=== PATIENT | female | born 2000 | race Two or more races ===

== ENCOUNTER 2021-05-15 18:24 | Emergency (ER) | payer OTHER ==
[~2021-05-15] VITALS: Ht 160 cm; Wt 65.8 kg
[2021-05-15] MEDS ORDERED: MACROBID 100 M100 MG PO (22:03)
== END 2021-05-15 22:12 | disposition home or self-care (01) ==
LOC: EMR PED 18:24 → ER 18:44
DX: R10.2 Pelvic and perineal pain (principal); O26.892 Other specified pregnancy related conditions, second trimester; Z3A.18 18 weeks gestation of pregnancy

== ENCOUNTER 2021-10-07 11:31 | Inpatient (IN) | payer OTHER ==
[~2021-10-07] VITALS: Ht 154.9 cm; Wt 3.6 kg
[~2021-10-07 11:31] MED LIST: MACROBID 100 M100 MG PO
== END 2021-10-21 14:36 | disposition home or self-care (01) | DRG 788 ==
LOC: LDR 10-15 14:00 → OB/GYN 10-18 23:42
PROVIDERS: ADMIT Obstetrics & Gynecology; ATTEND Obstetrics & Gynecology
PROC: 4A1HXCZ Monitoring of Products of Conception, Cardiac Rate, External Approach (ICD-10-PCS; 2021-10-18)
PROC: 10D00Z1 Extraction of Products of Conception, Low, Open Approach (ICD-10-PCS; principal; 2021-10-18 20:15)
DX: O36.63X0 Maternal care for excessive fetal growth, third trimester, not applicable or unspecified (principal); O33.5XX0 Maternal care for disproportion due to unusually large fetus, not applicable or unspecified; O99.820 Streptococcus B carrier state complicating pregnancy; Z3A.40 40 weeks gestation of pregnancy; Z37.0 Single live birth; Z20.822 Contact with and (suspected) exposure to COVID-19